=== PATIENT | male | born 1980 | race Caucasian/White ===

== ENCOUNTER 2021-02-07 13:58 | Emergency (ER) | payer OTHER, SELFPAY ==
--- OUTSIDE RECORDS SUMMARY | 2021-02-07 14:01 | XMS REPORT | Continuity of Care Document ---
:1980 Author Organization [facility] t Address [address] [place] [address] Care Team Providers Name Role Phone Singer QUINTANA Attending Clinician Doctor Unassigned, Name Attending Clinician Unavailable Vineet DOWNEY Attending Clinician Delia Donaldson Attending Clinician Problems This patient has no known problems. Allergies, Adverse Reactions, Alerts This patient has no known allergies or adverse reactions. Medications This patient has no known medications. Procedures This patient has no known procedures. Encounters Start End Encounter Admission Attending Care Care Encounter Source Date/Time Date/Time Type Type Clinicians Facility Department ID 2020-05-23 2020-05-23 Emergency Singer [facility] [id number] 12:53:08 13:45:00 Landry Chandra [id number] [place] [id number] [place] [id number] 2020-05-23 2020-05-23 Orders Doctor SCOTT [id number] 00:00:00 00:00:00 Only UnassignedANANT [id number] [place] [facility] [id number] 2020-01-25 2020-01-25 Emergency Vineet CASHARRI [id number] 07:17:46 09:17:00 Adam Chandra [id number] [place] [id number] [place] [id number] 2020-01-25 2020-01-25 Orders Doctor SCOTT [id number] 00:00:00 00:00:00 Only Unassigned, ANANT [id number] [place] [id number] [id number] 2019-05-26 2019-05-26 Emergency [facility] [id number] 17:04:08 19:25:00 Sukhdev Chandra [id number] [place] [id number] [place] [id number] 2019-05-26 2019-05-26 Orders Doctor SCOTT [id number] 00:00:00 00:00:00 Only UnassignedANANT [id number] [place] [id number] Results This patient has no known results.
--- NOTE | 2021-02-07 19:18 | ER ---
Nurse's Notes [facility] Name: Wayne Pino Jr Age: 40 yrs Sex: Male : 1980 Arrival Date: 02/07/2021 Time: 14:00 Bed Waiting Private MD: Diagnosis: Presentation: 02/07 14:38 Chief complaint: Patient states: nausea, upper abd pain, SOB started today. Ebola iw Screen: Patient negative for fever greater than or equal to 101.5 degrees Fahrenheit, and additional compatible Ebola Virus Disease symptoms Patient denies exposure to infectious person. Patient denies travel to an Ebola-affected area in the 21 days before illness onset. No symptoms or risks identified at this time. Initial Sepsis Screen: Does the patient meet any 2 criteria? No. Patient's initial sepsis screen is negative. Does the patient have a suspected source of infection? No. Patient's initial sepsis screen is negative. Risk Assessment: Do you want to hurt yourself or someone else? Patient reports no desire to harm self or others. Onset of symptoms was February 07, 2021. 14:38 Method Of Arrival: Ambulatory iw 14:38 Acuity: GEGE 3 iw ED Course: 14:00 Patient arrived in ED. as 14:39 Triage completed. iw 14:39 Arm band placed on. iw Administered Medications: No medications were administered Outcome: 19:18 Eloped from waiting room, before seeing physician iw 19:18 Patient left the ED. iw Signatures: Lilian Neil Irene, RN RN iw
== END 2021-02-07 19:18 | disposition left against medical advice (07) ==
LOC: ER 13:58
DX: Z53.21 Procedure and treatment not carried out due to patient leaving prior to being seen by health care provider (principal)
CPT/HCPCS: 99281

== ENCOUNTER 2021-05-08 15:49 | Emergency (ER) | payer SELFPAY ==
--- OUTSIDE RECORDS SUMMARY | 2021-05-08 15:52 | XMS REPORT | Continuity of Care Document ---
:1980 Author Organization [facility] t Address [address] [place] [address] Care Team Providers Name Role Phone Malu Cheema Attending Clinician Lab, Fam Pob I Attending Clinician Unavailable Problems This patient has no known problems. Allergies, Adverse Reactions, Alerts This patient has no known allergies or adverse reactions. Medications This patient has no known medications. Procedures This patient has no known procedures. Encounters Start End Encounter Admission Attending Care Care Encounter Source Date/Time Date/Time Type Type Clinicians Facility Department ID 2021-05-07 2021-05-07 Emergency Jennifer [facility] [id number] 14:20:00 16:07:00 Jessy Chandra [id number] [place] [id number] [place] [id number] 2021-04-12 2021-04-12 Laboratory Lab, [facility] [id number] 11:48:19 12:08:19 Only Fam Pob [facility] [id number] [place] [id number] [facility] [id number] [address] Results This patient has no known results.
[2021-05-08] MEDS ORDERED: MECLIZINE HCL 12.5 MG TAB ONE (18:00)
--- NOTE | 2021-05-08 18:31 | RAD REPORT ---
EXAM DESCRIPTION: CT - Head Brain Wo Cont - 05/08/2021 6:15 pm CLINICAL HISTORY: Dizziness COMPARISON: 2009 TECHNIQUE: Computed axial tomography of the head was obtained. IV contrast was not requested. All CT scans are performed using dose optimization technique as appropriate and may include automated exposure control or mA/KV adjustment according to patient size. FINDINGS: An intracranial bleed is not seen . A ventricular shunt has its tip in the right lateral ventricle. 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 Craniectomy. No extra-axial fluid collection is noted. 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 . Fluid within the sinuses/ mastoids is not seen. IMPRESSION: No acute intracranial abnormality is seen. If patient's symptoms persist MRI of the bra in would be recommended.
--- NOTE | 2021-05-08 19:18 | ER ---
Nurse's Notes [facility] Name: Wayne Pino Jr Age: 40 yrs Sex: Male : 1980 Arrival Date: 05/08/2021 Time: 15:55 Bed 17 Private MD: Diagnosis: Dizziness and giddiness Presentation: 05/08 16:22 Chief complaint: EMS states: dizziness x1.5 wks. last time he felt this way he had a tr6 deep ear infection. Coronavirus screen: At this time, unable to obtain information related to travel outside the [place] Ebola Screen: No symptoms or risks identified at this time. Initial Sepsis Screen: Does the patient meet any 2 criteria? No. Patient's initial sepsis screen is negative. Does the patient have a suspected source of infection? No. Patient's initial sepsis screen is negative. Risk Assessment: Do you want to hurt yourself or someone else? Patient reports no desire to harm self or others. 16:22 Method Of Arrival: EMS: [facility] tr6 16:22 Acuity: GEGE 3 ss 19:56 Onset of symptoms was April 28, 2021. 8 Triage Assessment: 16:22 General: Appears in no apparent distress. comfortable, Behavior is calm, cooperative, tr6 appropriate for age. Pain: Denies pain. EENT: Reports dizziness. Neuro: No deficits noted. Cardiovascular: No deficits noted. Respiratory: No deficits noted. GI: No deficits noted. : No deficits noted. Derm: No deficits noted. Musculoskeletal: No deficits noted. Screenin:23 Abuse screen: Denies threats or abuse. Denies injuries from another. Nutritional tr6 screening: No deficits noted. Tuberculosis screening: No symptoms or risk factors identified. Fall Risk Fall in past 12 months (25 points). Vital Signs: 17:52 BP 136 / 83; Pulse 83; Resp 18; Temp 97.9; Pulse Ox 100% on R/A; tr6 ED Course: 15:55 Patient arrived in ED. ds1 16:21 Monserrat Scott, RN is Primary Nurse. tr6 16:23 Resting quietly. tr6 16:23 Patient has correct armband on for positive identification. Bed in low position. Call tr6 light in reach. Side rails up X 1. Pulse ox on. NIBP on. Door closed. Noise minimized. Visitors limited. Lights dimmed. 16:23 No provider procedures requiring assistance completed. tr6 17:14 Dong Kumar MD is Attending Physician. kdr 18:01 Triage completed. 18:14 CT Head Brain wo Cont In Process Unspecified. EDMS 19:11 Primary Nurse role handed off by Monserrat Scott RN 19:55 IV discontinued, intact, bleeding controlled. jm8 19:56 Arm band placed on right wrist. jm8 Administered Medications: 17:42 Drug: Meclizine 25 mg Route: PO; tr6 19:58 Follow up: Response: No adverse reaction jm8 Outcome: 19:17 Discharge ordered by MD. kdr 19:55 Discharged to home ambulatory. jm8 19:55 Condition: good 19:55 Discharge instructions given to patient, Instructed on discharge instructions, follow up and referral plans. medication usage, Demonstrated understanding of instructions, follow-up care, medications, Prescriptions given X 1. 19:56 Patient left the ED. jm8 Signatures: Dispatcher [employer] EDLA Dong Kumar MD MD [facility] Dena Carter ds1 Emily Hernandez RN RN Zhane Carr Joseph RN RN jm8 Monserrat Scott, VANE RN tr6 Corrections: (The following items were deleted from the chart) 17:54 17:52 BP 136 / 83; Pulse 18bpm; Resp 18bpm; Pulse Ox 100% RA; Temp 97.9F; tr6 tr6
--- NOTE | 2021-05-08 19:18 | EDPHYS ---
Physician Documentation [facility] Name: Wayne Pino Jr Age: 40 yrs Sex: Male : 1980 Arrival Date: 05/08/2021 Time: 15:55 Bed 17 Private MD: ED Physician Dong Kumar HPI: 05/09 11:55 This 40 yrs old Male presents to ER via EMS with complaints of dizziness. kdr 11:55 The patient presents with dizziness, feeling off balance. Onset: The symptoms/episode kdr began/occurred suddenly, just prior to arrival, 1.5 week(s) ago. Context: occurred at home, occurred while the patient was at rest, standing, just prior to the episode the patient experienced no apparent symptoms. Modifying factors: The symptoms are alleviated by lying down, the symptoms are aggravated by standing up, changing position. Associated signs and symptoms: The patient has no apparent associated signs or symptoms. Severity of symptoms: At their worst the symptoms were mild moderate just prior to arrival, in the emergency department the symptoms are unchanged. Patient's baseline: Neuro: alert and fully oriented, Motor: no deficits, Ambulation: walks without assistance, Speech: normal, The patient has a previous history of chronic drug use. The patient has experienced similar episodes in the past, multiple times, but today's symptoms are worse, Has had this previously and may have been associated with an ear infection. The patient has not recently seen a physician. ROS: 11:55 Constitutional: Negative for fever, chills, and weight loss, Eyes: Negative for injury, kdr pain, redness, and discharge, ENT: Negative for injury, pain, and discharge, Neck: Negative for injury, pain, and swelling, Cardiovascular: Negative for chest pain, palpitations, and edema, Respiratory: Negative for shortness of breath, cough, wheezing, and pleuritic chest pain, Abdomen/GI: Negative for abdominal pain, nausea, vomiting, diarrhea, and constipation, Back: Negative for injury and pain, : Negative for injury, bleeding, discharge, and swelling, MS/Extremity: Negative for injury and deformity, Skin: Negative for injury, rash, and discoloration, Psych: Negative for depression, anxiety, suicide ideation, homicidal ideation, and hallucinations, Allergy/Immunology: Negative for hives, rash, and allergies, Endocrine: Negative for neck swelling, polydipsia, polyuria, polyphagia, and marked weight changes, Hematologic/Lymphatic: Negative for swollen nodes, abnormal bleeding, and unusual bruising. 11:55 Neuro: Positive for dizziness, Negative for altered mental status, gait disturbance, headache, hearing loss, loss of consciousness, numbness, seizure activity, speech changes, syncope, near syncope, tinnitus, tremor, visual changes. Exam: 11:55 Constitutional: This is a well developed, well nourished patient who is awake, alert, kdr and in no acute distress. Head/Face: Normocephalic, atraumatic. Eyes: Pupils equal round and reactive to light, extra-ocular motions intact. Lids and lashes normal. Conjunctiva and sclera are non-icteric and not injected. Cornea within normal limits. Periorbital areas with no swelling, redness, or edema. Neck: Trachea midline, no thyromegaly or masses palpated, and no cervical lymphadenopathy. Supple, full range of motion without nuchal rigidity, or vertebral point tenderness. No Meningismus. Chest/axilla: Normal chest wall appearance and motion. Nontender with no deformity. No lesions are appreciated. Cardiovascular: Regular rate and rhythm with a normal S1 and S2. No gallops, murmurs, or rubs. Normal PMI, no JVD. No pulse deficits. Respiratory: Lungs have equal breath sounds bilaterally, clear to auscultation and percussion. No rales, rhonchi or wheezes noted. No increased work of breathing, no retractions or nasal flaring. Abdomen/GI: Soft, non-tender, with normal bowel sounds. No distension or tympany. No guarding or rebound. No evidence of tenderness throughout. Back: No spinal tenderness. No costovertebral tenderness. Full range of motion. Skin: Warm, dry with normal turgor. Normal color with no rashes, no lesions, and no evidence of cellulitis. MS/ Extremity: Pulses equal, no cyanosis. Neurovascular intact. Full, normal range of motion. Neuro: Awake and alert, GCS 15, oriented to person, place, time, and situation. Cranial nerves II-XII grossly intact. Motor strength 5/5 in all extremities. Sensory grossly intact. Cerebellar exam normal. Normal gait. Psych: Awake, alert, with orientation to person, place and time. Behavior, mood, and affect are within normal limits. Vital Signs: 05/08 17:52 BP 136 / 83; Pulse 83; Resp 18; Temp 97.9; Pulse Ox 100% on R/A; tr6 MDM: 19:17 Patient medically screened. kdr 05/09 11:55 Data reviewed: vital signs, nurses notes, lab test result(s), radiologic studies, CT kdr scan. Counseling: I had a detailed discussion with the patient and/or guardian regarding: the historical points, exam findings, and any diagnostic results supporting the discharge/admit diagnosis, lab results, radiology results, the need for outpatient follow up. Response to treatment: the patient's symptoms have markedly improved after treatment, the patient is now symptom free. 05/08 17:35 Order name: CT Head Brain wo Cont; Complete Time: 19:16 kdr Administered Medications: 05/08 17:42 Drug: Meclizine 25 mg Route: PO; tr6 19:58 Follow up: Response: No adverse reaction jm8 Disposition Summary: 05/08/21 19:17 Discharge Ordered Location: Home kdr Problem: an acute exacerbation kdr Symptoms: have improved kdr Condition: Stable kdr Diagnosis - Dizziness and giddiness kdr Followup: kdr - With: Private Physician - When: 2 - 3 days - Reason: If symptoms return, Further diagnostic work-up, Recheck today's complaints, Continuance of care, Re-evaluation by your physician Discharge Instructions: - Discharge Summary Sheet kdr - Dizziness, [id number] kdr Forms: - Medication Reconciliation Form kdr - Thank You Letter kdr Prescriptions: - Meclizine 25 mg Oral Tablet - take 1 tablet by ORAL route every 8 hours As needed; 16 tablet; Refills: 0, kdr Product Selection Permitted Signatures: Dispatcher [employer] EDDong Bower MD MD kdr Monserrat Scott RN RN tr6 Adiel Oliver RN jm8
[2021-05-08 20:37] VITALS: BP 136/83; TEMP 97.9; O2SAT 100
== END 2021-05-08 19:56 | disposition home or self-care (01) ==
LOC: ER 15:49
DX: R42 Dizziness and giddiness (principal)
CPT/HCPCS: 70450; 99284